=== PATIENT | female | born 1990 | race Two or more races ===

== ENCOUNTER 2020-05-31 18:50 | Emergency (ER) | payer SELFPAY ==
[~2020-05-31] VITALS: Ht 157.5 cm; Wt 12.5 kg
[2020-05-31] MEDS ORDERED: ONDANSETRON ODT 4 MG PO ONE (19:30)
[2020-05-31] MEDS ORDERED: OXYcodone/APAP 5/325MG TABLET PO ONE (19:30)
--- NOTE | 2020-05-31 19:32 | NUR ---
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
[2020-05-31] MEDS ORDERED: OXYcodone/APAP 5/325MG TABLET ONE (19:56)
[2020-05-31] MEDS ORDERED: ONDANSETRON ODT 4 MG ONE (19:57)
--- NOTE | 2020-05-31 20:00 | NUR ---
PT MEDICATED FOR PAIN. UPDATED ON POC. ER PA AT BS NOW. PT STATES SHE USED TO HAVE A BIG BRUISE ON HER L CHEST BUT IT HAS GONE AWAY.
--- NOTE | 2020-05-31 20:48 | NUR ---
CT PENDING HCG/LAB.
[2020-05-31] MEDS ORDERED: MORPHINE SULFATE 4 MG/ML, 1ML ONE (20:57)
[2020-05-31] MEDS ORDERED: MORPHINE SULFATE 4 MG/ML, 1ML IVPush PRN (21:00)
[2020-05-31 21:01] LABS: BASOPHILS % (AUTO) 0 % (0-1); EOSINOPHILS % (AUTO) 1 % (1-7); LYMPHOCYTES % (AUTO) 15 % (22-44); MEAN CORPUSCULAR HEMOGLOBIN 32.1 pg (27.0-34.8); MEAN CORPUSCULAR HGB CONC 34.3 g/dL (32.4-35.8); MEAN PLATELET VOLUME 9.6 fL (7.4-10.4); MONOCYTES % (AUTO) 8 % (2-9); NEUTROPHILS % (AUTO) 76 % (42-75); PLATELET COUNT 155 x10^3/uL (130-400); RED BLOOD COUNT 4.22 x10^6/uL (3.82-5.3); RED CELL DISTRIBUTION WIDTH 14.1 % (9.6-15.2)
--- NOTE | 2020-05-31 21:01 | NUR ---
PT STILL REPORTING 9-10/10 RIB PAIN ON LEFT. ER PA NOTIFIED. MEDICATED WITH MORPHINE PER ORDERS. PT UNDERSTANDS POC.
[2020-05-31 21:05] LABS: ALBUMIN 3.7 g/dL (3.4-5.0); ANION GAP 5 mmol/L (5-15); CALCIUM 8.2 mg/dL (8.5-10.1); CHLORIDE 108 mmol/L (98-107); CREATININE 0.57 mg/dL (0.55-1.02); MD NO
--- NOTE | 2020-05-31 21:50 | NUR ---
PT TO CT VIA [facility].
[2020-05-31] MEDS ORDERED: OMNIPAQUE 350 MG/ML, 100ML BOTTLE ONE (21:56)
--- NOTE | 2020-05-31 22:07 | NUR ---
ERP AT FOR RECHECK.
[2020-05-31 22:30] VITALS: BP 115/58
--- NOTE | 2020-05-31 22:57 | NUR ---
D/C INSTRUCTIONS, MEDS & F/U APPT RV'WD WITH PT, SHE VERBALIZES UNDERSTANDING. RX GIVEN X4. INSTRUCTED PT TO RETURN TO ED FOR WORSENING SYMPTOMS. PT AMBULATED OUT OF ED WITHOUT DIFFICULTY, STATES HER MOM WILL PICK HER UP.
== END 2020-05-31 22:57 | disposition home or self-care (01) ==
LOC: ED 22:01
DX: S29.011A Strain of muscle and tendon of front wall of thorax, initial encounter (principal); K61.0 Anal abscess; W20.8XXA Other cause of strike by thrown, projected or falling object, initial encounter; Y93.89 Activity, other specified; Y92.89 Other specified places as the place of occurrence of the external cause; Y99.0 Civilian activity done for income or pay
CPT/HCPCS: 36415; 71101; 72193; 80048; 82040; 84703; 85025; 93005; 96374; 99285; J2270; Q0162; Q9967

== ENCOUNTER 2020-06-01 10:39 | Emergency (ER) | payer SELFPAY ==
[~2020-06-01] VITALS: Ht 157.5 cm; Wt 111.5 kg
[2020-06-01 11:27] VITALS: BP 114/70
[2020-06-01] MEDS ORDERED: SULFAMETH./TRIMETHOPRIM DS 800MG/160MG TABLET ONE (11:47)
[2020-06-01] MEDS ORDERED: OXYcodone/APAP 5/325MG TABLET ONE (11:48)
[2020-06-01] MEDS ORDERED: OXYcodone/APAP 5/325MG TABLET PO ONE (12:00)
[2020-06-01] MEDS ORDERED: SULFAMETH./TRIMETHOPRIM DS 800MG/160MG TABLET PO ONE (12:00)
== END 2020-06-01 12:04 | disposition home or self-care (01) ==
LOC: ED 12:03
DX: L02.215 Cutaneous abscess of perineum (principal); R07.81 Pleurodynia; K62.89 Other specified diseases of anus and rectum
CPT/HCPCS: 99283

== ENCOUNTER 2020-06-03 16:07 | Emergency (ER) | payer MEDICAID ==
[~2020-06-03] VITALS: Ht 157.5 cm; Wt 112.9 kg
[2020-06-03 16:09] VITALS: BP 130/82
[2020-06-03] MEDS ORDERED: LIDOCAINE-MPF 1%, 5ML ONE (16:54)
[2020-06-03] MEDS ORDERED: ONDANSETRON ODT 4 MG ONE (16:54)
[2020-06-03] MEDS ORDERED: OXYcodone/APAP 5/325MG TABLET ONE (16:54)
[2020-06-03] MEDS ORDERED: LIDOCAINE-MPF 1%, 5ML INFIL ONE (17:00)
[2020-06-03] MEDS ORDERED: OXYcodone/APAP 5/325MG TABLET PO ONE (17:00)
[2020-06-03] MEDS ORDERED: ONDANSETRON ODT 4 MG PO ONE (17:00)
--- NOTE | 2020-06-03 17:55 | NUR ---
Patient/Caregiver given discharge instructions and they have confirmed that they understand the instructions. Patient ambulatory with steady gait.
== END 2020-06-03 17:56 | disposition home or self-care (01) ==
LOC: ED 16:31
DX: K61.0 Anal abscess (principal)
CPT/HCPCS: 46050; 99284; Q0162; 99283

== ENCOUNTER 2020-06-08 17:01 | Emergency (ER) | payer MEDICAID ==
[~2020-06-08] VITALS: Ht 157.5 cm; Wt 110.0 kg
--- NOTE | 2020-06-08 17:28 | NUR ---
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
--- NOTE | 2020-06-08 17:57 | NUR ---
PT TO XRAY.
[2020-06-08] MEDS ORDERED: OXYcodone/APAP 5/325MG TABLET ONE ×2 (18:02→19:15)
[2020-06-08] MEDS ORDERED: LIDOCAINE-MPF 1%, 5ML ONE (18:02)
--- NOTE | 2020-06-08 18:12 | NUR ---
PT MEDICATED PER ERP ORDER FOR 01/09 PERIAREA PAIN/ABSCESS. LIDOCAINE PROVIDED TO PA. I&D SET UP AT BS.
[2020-06-08] MEDS ORDERED: OXYcodone/APAP 5/325MG TABLET PO ONE ×2 (18:30→19:30)
[2020-06-08] MEDS ORDERED: LIDOCAINE-MPF 1%, 5ML INFIL ONE (18:30)
--- NOTE | 2020-06-08 18:56 | NUR ---
Rec'd report from Jessica ROSEN. Patient states that she is increase pain d/t I&D. Other than that patient resting, on her phone.
--- NOTE | 2020-06-08 19:00 | NUR ---
REPORT TO SUSAN, TRANSFER OF CARE AT THIS TIME.
[2020-06-08 19:37] VITALS: BP 111/74
--- NOTE | 2020-06-08 19:41 | NUR ---
Patient given discharge instructions and they have confirmed that they understand the instructions. Patient ambulatory with steady gait.
== END 2020-06-08 19:44 | disposition home or self-care (01) ==
LOC: ED 19:38
DX: S29.9XXA Unspecified injury of thorax, initial encounter (principal); K61.0 Anal abscess; X58.XXXA Exposure to other specified factors, initial encounter; Y93.89 Activity, other specified; Y92.89 Other specified places as the place of occurrence of the external cause; Y99.8 Other external cause status
CPT/HCPCS: 46040; 99284

== ENCOUNTER 2020-11-12 23:47 | Emergency (ER) | payer MEDICAID ==
[~2020-11-12] VITALS: Ht 160 cm; Wt 105.7 kg
[2020-11-12 23:49] VITALS: BP 136/95
--- NOTE | 2020-11-13 00:18 | NUR ---
Records requested and sent to alejandro.
--- NOTE | 2020-11-13 01:42 | NUR ---
NANDA Hunt at bedside for eval.
== END 2020-11-13 02:28 | disposition home or self-care (01) ==
LOC: ED 11-13 01:30
DX: R51.9 Headache, unspecified (principal); J45.909 Unspecified asthma, uncomplicated
CPT/HCPCS: 99281

== ENCOUNTER 2021-02-02 19:04 | Emergency (ER) | payer MEDICAID, OTHER ==
[~2021-02-02] VITALS: Ht 157.5 cm; Wt 107.9 kg
[2021-02-02 19:18] VITALS: BP 134/87
== END 2021-02-02 21:58 ==
LOC: ED 21:44
DX: S40.011A Contusion of right shoulder, initial encounter (principal); J45.909 Unspecified asthma, uncomplicated; W01.0XXA Fall on same level from slipping, tripping and stumbling without subsequent striking against object, initial encounter; Y93.89 Activity, other specified; Y92.89 Other specified places as the place of occurrence of the external cause; Y99.8 Other external cause status
CPT/HCPCS: 99283